=== PATIENT | male | born 1960 | race Caucasian/White ===

== ENCOUNTER 2017-05-03 20:06 | Inpatient (IN) | payer OTHER ==
[2017-05-03 22:57] VITALS: BMI 23.5
[2017-05-03 23:12] VITALS: RESP 16
[2017-05-04] MEDS ORDERED: HEPARIN SODIUM,PORCINE 10,000 UNIT/ML 1 ML VIAL IV ONE (00:42)
[2017-05-04] MEDS ORDERED: HEPARIN SODIUM,PORCINE/D5W PMX 25,000 UNIT in DEXTROSE/WATER 1 500ML.BAG IV SCH (00:42)
[2017-05-04] MEDS ORDERED: HEPARIN SODIUM,PORCINE 5,000 UNIT/ML 1 ML VIAL IV PRN (00:42)
[2017-05-04] MEDS ORDERED: SODIUM CHLORIDE 0.9% 1,000 ML IV SCH (00:45)
[2017-05-04] MEDS ORDERED: LORATADINE 10 MG TAB PO PRN (00:47)
[2017-05-04 06:59] LABS: Anion Gap 7 mmol/L; Blood Urea Nitrogen 16 mg/dL (9-20); Calcium 8.5 mg/dL (8.4-10.2); Carbon Dioxide 25 mmol/L (22-30); Chloride 108 mmol/L (98-107); Glucose 97 mg/dL (74-99); Non-African American GFR(MDRD) >60 (>60 ml/min/1.73 sqM); Potassium 4.1 mmol/L (3.5-5.1); Sodium 140 mmol/L (137-145)
[2017-05-04] MEDS ORDERED: [UNRECOGNIZED DRUG - REMARK] PO SCH (09:00)
[2017-05-04] MEDS ORDERED: guaiFENesin 600 MG TABLET.ER PO SCH (09:00)
[2017-05-04 09:13] VITALS: TEMP 98.3
[2017-05-04] MEDS ORDERED: RIVAROXABAN 15 MG TAB PO SCH (11:00)
[2017-05-04 13:00] VITALS: BP 114/64; PULSE 64
--- NOTE | 2017-05-04 13:24 | HP ---
DATE OF ADMISSION: This dictation is both H&P and DISCHARGE SUMMARY. The patient is a very pleasant 57-year-old gentleman who was seen in [facility] for acid reflux like symptoms. The patient has acid burn. His symptoms onset is after eating. Patient has history of peptic ulcer disease in the past. Patient continues to smoke. Patient had an abdominal CT as well as a CT of the chest which incidentally showed bilateral pulmonary embolism. No mention whether it is an acute PE or not, although patient had a pulmonary embolism in 2006 and a DVT in 2006 after which patient was on anticoagulation for 3-1/2 years without any GI bleed. Patient was on Coumadin at that time. The anticoagulation was discontinued after 3-1/2 years. Patient later is found to have some peptic ulcer disease, which is completely healed and patient has actually has esophagitis and patient on the CT of the abdomen and chest showed esophageal thickening consistent with esophagitis and patient's symptoms are consistent with acid reflux. Patient denied any other chest pain. Denied any fever, chills, lightheadedness. Patient denied any shortness of breath. Patient is a smoker, although had a CT of the chest, which did not show a significant abnormality. The patient denied any loss of weight and patient had a colonoscopy about a year ago, which was essentially negative. The only thing he needs PSA testing, which can be done as an outpatient. Patient denied any family history of pulmonary embolism or ( ) mutation. REVIEW OF SYSTEMS: CONSTITUTIONAL: No fever, no malaise, no fatigue. HEENT: No recent visual problems or hearing problems. Denied any sore throat. CARDIOVASCULAR: No chest pain, orthopnea, PND, no palpitations, no syncope. PULMONARY: No shortness of breath, no cough, no hemoptysis. GASTROINTESTINAL: As described in HPI. NEUROLOGICAL: No headaches, no weakness, no numbness. HEMATOLOGICAL: Denies any bleeding or petechiae. GENITOURINARY: Denies any burning micturition, frequency, or urgency. MUSCULOSKELETAL/RHEUMATOLOGICAL: Denies any joint pain, swelling, or any muscle pain. ENDOCRINE: Denies any polyuria or polydipsia. The rest of the 14 point review of systems is negative. Home medications include: 1. Prednisone. 2. Guaifenesin. 3. Simvastatin. 4. Loratadine. Past medical history is significant for pulmonary embolism and DVT in the past, hyperlipidemia, possible COPD for which patient is on weaning dose of steroids. SOCIAL HISTORY: Smokes about a pack per day. Denied any alcohol abuse or any drug abuse. FAMILY HISTORY: Significant for diabetes mellitus and leukemia in the family. PHYSICAL EXAMINATION: VITAL SIGNS: Temperature 98.3, pulse of 67, respiratory of 16, blood pressure is 106/73, saturating at 93% on room air. GENERAL: The patient is alert and oriented x3, not in any acute distress. Well developed, well nourished. HEENT: Pupils are round and equally reacting to light. EOMI. No scleral icterus. No conjunctival pallor. Normocephalic, atraumatic. No pharyngeal erythema. No thyromegaly. CARDIOVASCULAR: S1 and S2 present. No murmurs, rubs, or gallops. PULMONARY: Chest is clear to auscultation, no wheezing or crackles. ABDOMEN: Soft, nontender, nondistended, normoactive bowel sounds. No palpable organomegaly. MUSCULOSKELETAL: No joint swelling or deformity. EXTREMITIES: No cyanosis, clubbing, or pedal edema. NEUROLOGICAL: Gross neurological examination did not reveal any focal deficits. SKIN: No rashes. Laboratory data from the other hospital is reviewed. CT of the abdomen, chest and pelvis was reviewed. Patient is on heparin here. Basic metabolic profile is essentially within normal limits. ASSESSMENT AND PLAN: 1. Possibly acute bilateral pulmonary embolism in subsegmental branches, right more so than the left. Patient will be started on anticoagulation. Since this is the second non-precipitated deep venous thrombosis. 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 Patient will be started on Xarelto and will verify the insurance approved for Xarelto and patient will be subsequently discharged. Initially need to be 15 mg twice a day for 21 days followed by 30 mg daily, probably for life long and patient needs to watch for any gastrointestinal bleed considering his peptic ulcer disease in the past, although patient has esophagitis now. 2. Severe gastroesophageal reflux disease and esophagitis for which patient will be discharged on Prilosec and patient may eventually need an upper gastrointestinal endoscopy, which can be done as an outpatient. 3. Hyperlipidemia. 4. Possible chronic obstructive pulmonary disease with a smoking history. Extensive smoking cessation counseling was provided. Patient will be discharged today. Once we verified the insurance approval for Xarelto. If not, patient will be started on bridging Lovenox and Coumadin, which he tolerated in the past very well. Patient cannot take aspirin as aspirin was responsible for his previous peptic ulcer disease. This dictation is both H&P and discharge summary. Patient will follow with Dr. Henri Bush in 3 to 7 days; Dr. Michael Lanza in one week and Dr. Caldwell in 2 weeks.
--- NOTE | 2017-05-04 14:05 | ECHOF ---
Referral Reason:PE MEASUREMENTS -------- HEIGHT: 190.5 cm WEIGHT: 81.7 kg BP: 127/75 RVIDd: 3.3 cm (< 3.3) IVSd: 1.0 cm (0.6 - 1.1) LVIDd: 5.2 cm (3.9 - 5.3) LVPWd: 0.9 cm (0.6 - 1.1) IVSs: 1.5 cm LVIDs: 3.4 cm LVPWs: 1.7 cm LA Diam: 3.7 cm (2.7 - 3.8) LAESV Index (A-L): 33.79 ml/m Ao Diam: 4.1 cm (2.0 - 3.7) AV Cusp: 2.4 cm (1.5 - 2.6) MV EXCURSION: 22.777 mm (> 18.000) MV EF SLOPE: 141 mm/s (70 - 150) EPSS: 0.9 cm MV E Shade: 0.76 m/s MV DecT: 317 ms MV A Shade: 0.74 m/s MV E/A Ratio: 1.02 RAP: 5.00 mmHg RVSP: 31.76 mmHg FINDINGS -------- Sinus rhythm. This was a technically good study. The left ventricular size is normal. Left ventricular wall thickness is normal. Overall left ventricular systolic function is normal with, an EF between 55 - 60 %. The right ventricle is mildly enlarged. LA is midly dilated 29-33ml/m2. The right atrium is normal in size. The aortic valve is trileaflet and appears structurally normal. The mitral valve is normal. There is trace to mild mitral regurgitation. Mild tricuspid regurgitation present. Right ventricular systolic pressure is normal at < 35 mmHg. The pulmonic valve was not well visualized. There is no pulmonic regurgitation present. The aortic root is dilated measuring 4.1cm. The inferior vena cava is mildly dilated. There is no pericardial effusion. CONCLUSIONS -------- 1. Sinus rhythm. 2. Mild tricuspid regurgitation present. 3. Right ventricular systolic pressure is normal at < 35 mmHg. 4. The pulmonic valve was not well visualized. 5. There is no pulmonic regurgitation present. 6. The aortic root is dilated measuring 4.1cm. 7. The inferior vena cava is mildly dilated. 8. There is no pericardial effusion. 9. This was a technically good study. 10. The left ventricular size is normal. 11. Left ventricular wall thickness is normal. 12. Overall left ventricular systolic function is normal with, an EF between 55 - 60 %. 13. The right ventricle is mildly enlarged. 14. LA is midly dilated 29-33ml/m2. 15. The aortic valve is trileaflet and appears structurally normal. 16. There is trace to mild mitral regurgitation. H[employer] HE[employer] BU[employer]DER: Caitlin Rausch RDCS
--- NOTE | 2017-05-04 14:54 | CONS ---
DATE OF CONSULTATION: Mr. Fournier is a 57-year-old male who was transferred from [facility] with symptoms of reflux and dyspnea. He had an upper respiratory infection on and off for the last few weeks, has been treated with antibiotics and tapering dose of prednisone, but over the last 24 hours he was feeling more symptoms consistent with gastroesophageal reflux disease that could have been exacerbated by his steroids. He went to the emergency room at [facility] and a CT angiogram of the chest showed evidence of pulmonary embolism. He was transferred to [facility] for further evaluation. Patient has no clear symptoms of dyspnea. He has no symptoms of chest pain. No dizziness or palpitation. No syncope. He has no PND, orthopnea, or peripheral edema. No recent trauma. He has no prior cardiac history. His coronary risk factors are remarkable for smoking and hyperlipidemia. He is nondiabetic. He has no history of hypertension. His medications include tapering dose of prednisone, simvastatin 20 mg daily, loratadine. REVIEW OF SYSTEMS: RESPIRATORY SYSTEM: He has dyspnea on exertion and cough related to upper respiratory infarction. GI SYSTEM: History of gastroesophageal reflux disease. No GI bleeding. These ( ) were affected by his recent treatment. SYSTEM: No dysuria or hematuria. NERVOUS SYSTEM: No history of stroke or seizure. PHYSICAL EXAMINATION: A 57-year-old male, alert, oriented, in no apparent distress. Blood pressure 106/73 with the heart rate in the 60s. HEAD: Normocephalic. EYES: Sclerae anicteric. NECK: Good upstroke. No bruit. No jugular venous distention. LUNGS: Clear to auscultation. HEART: Regular rate and rhythm. S1, S2, no S3, no S4, no murmur or rub. ABDOMEN: Soft, nontender, positive bowel sounds. No organomegaly. EXTREMITIES: No edema. Intact distal pulses. Homans sign is negative. Lab data revealed BUN and creatinine 16 and 0.81. Potassium 4.1. EKG performed at [facility] revealed sinus mechanism, normal axis and intervals, normal electrocardiogram. His lab data showed a troponin 0.01. Hemoglobin of 16. BUN and creatinine 20 and 0.9. IMPRESSION: 1. Recent upper respiratory infection. 2. Chronic tobacco use. 3. Abnormal CAT scan consistent with pulmonary embolism. 4. Symptoms of gastroesophageal reflux disease with thickening of the esophagus. RECOMMENDATIONS: From the cardiac standpoint, I will review the results of his echocardiogram. Will obtain echocardiogram. Patient has been started on Xarelto. He should be able to be discharged home soon and follow up as an outpatient. Thank you for this consult. We will follow with you.
[2017-05-04] MEDS ORDERED: ATORVASTATIN 10 MG TAB PO SCH (21:00)
[2017-05-04] MEDS ORDERED: MULTIVITAMINS, THERA 1 EACH TAB PO SCH (21:00)
[2017-05-05] MEDS ORDERED: predniSONE 20 MG TAB PO SCH (09:00)
== END 2017-05-04 13:04 | disposition home or self-care (01) | DRG 176 ==
LOC: 6SEL 22:23
PROVIDERS: ADMIT Internal Medicine; ATTEND Internal Medicine
DX: I26.99 Other pulmonary embolism without acute cor pulmonale (principal); E78.5 Hyperlipidemia, unspecified; K21.0 Gastro-esophageal reflux disease with esophagitis; F17.200 Nicotine dependence, unspecified, uncomplicated; Z87.11 Personal history of peptic ulcer disease; Z86.718 Personal history of other venous thrombosis and embolism; Z86.711 Personal history of pulmonary embolism; Z79.899 Other long term (current) drug therapy
CPT/HCPCS: 80048; 83735; 85379; 85730; 93306

== ENCOUNTER 2017-09-26 05:44 | Day surgery (SDC) | payer BC, OTHER ==
[2017-09-25 11:24] VITALS: BMI 25.0
[2017-09-26] MEDS ORDERED: ATORVASTATIN 80 MG TAB PO STA (06:18)
[2017-09-26] MEDS ORDERED: ASPIRIN 325 MG TAB PO STA (06:18)
[2017-09-26] MEDS ORDERED: ALPRAZolam 0.5 MG TAB PO PRN (06:18)
[2017-09-26] MEDS ORDERED: SODIUM CHLORIDE 0.9% 1,000 ML in EMPTY BAG 1 BAG IV ONE (06:18)
[2017-09-26] MEDS ORDERED: NITROGLYCERIN SL TABS 0.4 MG TAB SUBLINGUAL PRN (06:18)
[2017-09-26] MEDS ORDERED: ALPRAZolam 0.25 MG TAB PO PRN (06:18)
[2017-09-26 07:01] VITALS: RESP 16; TEMP 98.1
[2017-09-26 07:08] LABS: INR 1.1 (<1.2); Prothrombin Time 11.3 sec (9.0-12.0)
[2017-09-26] MEDS ORDERED: VERAPAMIL 2.5 MG/ML 2 ML AMP ONE (07:09)
[2017-09-26] MEDS ORDERED: LIDOCAINE 2% INJ 20 MG/ML (20 ML MDV) ONE (07:09)
[2017-09-26] MEDS ORDERED: fentaNYL (PF) 50 MCG/ML 2 ML AMP ONE (07:22)
[2017-09-26] MEDS ORDERED: HEPARIN SODIUM 1,000 UN/ML (10ML VL) ONE (07:22)
[2017-09-26] MEDS ORDERED: fentaNYL (PF) 50 MCG/ML 2 ML AMP IVP ONE (07:42)
[2017-09-26] MEDS ORDERED: LIDOCAINE 2% INJ 20 MG/ML SQ ONE (07:43)
[2017-09-26] MEDS ORDERED: VERAPAMIL SYRINGE (5 MG/10 ML) INTRAARTER ONE (07:45)
[2017-09-26] MEDS ORDERED: HEPARIN SODIUM 1,000 UN/ML (10ML VL) IV ONE (07:53)
[2017-09-26] MEDS ORDERED: IOHEXOL 350 MG/ML 125ML BOTTLE INJ ONE (08:02)
[2017-09-26] MEDS ORDERED: RX INFO: IV CONTRAST WAS GIVEN 1 EACH MISC MISCELLANE PRN (08:26)
[2017-09-26] MEDS ORDERED: [UNRECOGNIZED DRUG - OTHER] PO PRN (08:27)
[2017-09-26] MEDS ORDERED: DOXYLAMINE PO PRN (08:27)
[2017-09-26] MEDS ORDERED: DEXTROMETHORPHAN PO PRN (08:27)
[2017-09-26] MEDS ORDERED: ACETAMINOPHEN PO PRN (08:27)
[2017-09-26] MEDS ORDERED: SODIUM CHLORIDE 0.9% 1,000 ML IV SCH (08:30)
[2017-09-26] MEDS ORDERED: [UNRECOGNIZED DRUG - REMARK] PO SCH (09:00)
[2017-09-26] MEDS ORDERED: WARFARIN 5 MG TAB PO SCH (09:00)
--- NOTE | 2017-09-26 09:00 | CC ---
CARDIAC CATHETERIZATION REPORT Mr. Fournier is a 57-year-old male with known history of chronic tobacco use, history of hyperlipidemia, who recently underwent a myocardial perfusion imaging that showed evidence to suggest cardiomyopathy. In view of that, recommendation made regarding cardiac catheterization. The procedures, risks and complications were discussed with the patient who is in full understanding and agreement. PROCEDURE: Patient was brought to the [facility] in a fasting semi-sedated state after receiving fentanyl and Benadryl and achieving moderate conscious sedated state. Using Xylocaine anesthesia and Seldinger technique, a 6-Swedish sheath was introduced in the right radial artery. Selective right and left angiography performed using 5-Swedish 3.5 bend right and left Gypsy catheter. Multiple views of the coronary artery including hemiaxial views were obtained. Following that, 5-Swedish tight pigtail catheter was introduced in the left ventricle and a 30 degree SANCHEZ view of the left ventricle was obtained. Following that, catheter and sheath were removed. Hemostasis was obtained with deployment of a TR band. There was no immediate complication. Patient is returned to his room in stable condition. Of note, patient received 4500 units of intravenous heparin as well as intra-arterial verapamil. FINDINGS: 1. LEFT MAIN: This is a large-sized vessel bifurcating into left circumflex, left anterior descending artery. Left main coronary artery is without any obstructive coronary disease. 2. LEFT ANTERIOR DESCENDING ARTERY: This is a large-sized vessel reaching toward the apex with a wraparound apex segment that tapers down in the distal third, giving rise to two moderate small diagonal branch. Left anterior descending artery as well as branches have no evidence of obstructive coronary artery disease. 3. LEFT CIRCUMFLEX: This is a nondominant vessel, moderate in caliber, giving rise to one large obtuse marginal branch. The left circumflex as well as branches have no evidence of obstructive coronary disease. 4. RIGHT CORONARY ARTERY: This is a large dominant vessel, tortuous, bifurcating distally into PDA, posterolateral segment and branches. The right coronary artery as well as branches have no evidence of obstructive coronary artery disease. 5. LEFT VENTRICULOGRAM: A left ventriculogram was performed in 30 degree SANCHEZ view, reveals normal left ventricular size and systolic function. Ejection fraction is 55%. There was no evidence of mitral regurgitation. 6. HEMODYNAMICS: There was no gradient across the aortic valve. The left ventricular end-diastolic pressure was 10 to 12 mmHg. CONCLUSION: 1. Normal coronary arteries. 2. Normal left ventricular size and systolic function. RECOMMENDATION: 1. I have recommend to continue medical therapy with aggressive risk factor modification that has been initiated including smoking cessation. The importance of that was discussed with the patient who is in full understanding and agreement. DURATION OF THE PROCEDURE: 22 minutes. FARIBA / AD: [id number] / MTDD
--- NOTE | 2017-09-26 09:06 | LTR ---
DATE OF SERVICE: 09/26/2017 RE: Darwin Fournier Dear Dr. Bush; I had the pleasure to perform cardiac catheterization on Mr. Fournier at [facility] on September 26, 2017 and a full copy of the procedure note will be forwarded to you. In brief, he was found to have no evidence of high-grade stenosis with preserved left ventricular size and systolic function and based on those findings, I have recommended to continue medical therapy with the aggressive risk factor modification being initiated. Thank you again for allowing me to participate in this patient's care. Please feel free to call for any questions. Sincerely yours, MD JORDAN CortesL / ELIZABETN: [id number] /
[2017-09-26 13:22] VITALS: BP 124/62; PULSE 60
[2017-09-26] MEDS ORDERED: NON-FORMULARY DRUG (Multivit-Min/Fa/Lycopen/Lutein [Centrum Silver Men Tablet] 1 TAB) PO SCH (21:00)
[2017-09-26] MEDS ORDERED: NON-FORMULARY DRUG (Simvastatin [Simvastatin] 20 MG) PO SCH (21:00)
[2017-09-27] MEDS ORDERED: PANTOPRAZOLE 40 MG TABLET PO SCH (07:30)
== END 2017-09-26 13:13 | disposition home or self-care (01) ==
LOC: CATHCVL 05:44
PROVIDERS: ATTEND Internal Medicine Interventional Cardiology
DX: I42.9 Cardiomyopathy, unspecified (principal); R94.39 Abnormal result of other cardiovascular function study; E78.2 Mixed hyperlipidemia; F17.210 Nicotine dependence, cigarettes, uncomplicated; J44.9 Chronic obstructive pulmonary disease, unspecified; Z86.711 Personal history of pulmonary embolism; Z79.01 Long term (current) use of anticoagulants; Z79.899 Other long term (current) drug therapy; Z88.5 Allergy status to narcotic agent
CPT/HCPCS: 93458; 85610; C1894; C1769; J2001; J3010; J1644; Q9967